=== PATIENT | male | born 1965 | race Caucasian/White ===

== ENCOUNTER → 2022-05-22 | Outpatient (CLI) | payer MEDICARE ==
--- NOTE | 2022-05-22 20:07 | CT ---
EXAMINATION TYPE: CT abdomen wo con DATE OF EXAM: 05/22/2022 COMPARISON: None INDICATION: Right upper quadrant pain DLP: 308.20 mGycm, Automated exposure control for dose reduction was used. CONTRAST: 0 mL of Isovue 300. Study performed without Oral Contrast TECHNIQUE: Axial images were obtained from above the diaphragm to the pubic rami in the axial plane a t 5 mm thick sections. Reconstructed images are reviewed on the computer in the coronal plane. FINDINGS: Limited CT sections are obtained the lung bases. The lung bases are clear. CT ABDOMEN: Liver: Normal Spleen: Normal Pancreas: Normal Adrenal glands: The adrenal glands are normal. Gallbladder: Normal Kidneys: No masses are evident. No hydronephrosis is present. No cysts are present. No renal stone s are evident. Aorta: Vascular calcification is within the aorta. Inferior vena cava: Normal. Bowel: Loops of bowel lateral contrast are unremarkable. Appendix: Normal as visualized. IMPRESSIONS: 1. No suspicious abnormality to account for right upper quadrant pain
== END | disposition home or self-care (01) ==
LOC: RADCTMAIN 10:35
PROVIDERS: ATTEND Family Medicine
DX: R10.11 Right upper quadrant pain (principal); R07.89 Other chest pain; R63.4 Abnormal weight loss
CPT/HCPCS: 74150

== ENCOUNTER → 2022-12-14 | Outpatient (CLI) | payer MEDICARE ==
--- NOTE | 2022-12-14 14:14 | CT ---
EXAMINATION TYPE: CT chest wo con CT DLP: 309.3 mGycm, Automated exposure control for dose reduction was used. DATE OF EXAM: 12/14/2022 12:30 PM COMPARISON: CT abdomen 05/22/2022 CLINICAL INDICATION:Male, 57 years old with history of R06.89, J984, R079; PHH, Chest pain and shortn ess of breath. TECHNIQUE: Multiple axial images were obtained through the chest. Sagittal and coronal reformats were created for review. Contrast used: none. Oral contrast used: none. FINDINGS: LUNGS/ PLEURA: Mild emphysema changes. No evidence of focal consolidation, pneumothorax or pleural ef fusion. Scattered groundglass opacities are seen within the left lower lobe. AIRWAY: Patent and unremarkable. HEART: Size within normal limits. Mild coronary artery atherosclerosis. MEDIASTINUM: No gross evidence of adenopathy. VASCULATURE: No aortic aneurysm. MUSCULOSKELETAL: No acute osseous abnormalities, degeneration changes of the shoulders. Multilevel de generation changes of the spine. Bridging osteophytes along the anterior longitudinal ligament extend ing from the cervical spine to the lumbar spine. The supraspinatus ligament is also calcified at mult iple levels in the midthoracic spine. SOFT TISSUES/LYMPH NODES: Unremarkable. LOWER NECK: No significant findings. UPPER ABDOMEN: Ingested food within the stomach with mild dilation of the stomach. IMPRESSION: 1. Minimal groundglass opacity seen within the left lower lobe new from 05/22/2022, correlate for in fectious/inflammatory process. Consider short-term follow-up in 3 months to ensure resolution. 2. Mild emphysema changes. 3. Findings compatible with diffuse idiopathic skeletal hyperostosis.
== END | disposition home or self-care (01) ==
LOC: RADCTMAIN 12:12
PROVIDERS: ATTEND Family Medicine
DX: J43.9 Emphysema, unspecified (principal); R91.8 Other nonspecific abnormal finding of lung field; J98.4 Other disorders of lung; R06.89 Other abnormalities of breathing
CPT/HCPCS: 71250

== ENCOUNTER → 2023-01-09 | Outpatient (CLI) | payer MEDICARE ==
[~2023-01-09] MED LIST: REGADENOSON 0.4 MG/5 ML SYRINGE IV PRN
--- NOTE | 2023-01-09 13:05 | CA ---
Lexiscan Nuclear Stress Test Report Name: Luis Ingram Exam Date: 01/09/2023 09:26 Exam Location: [facility] Stress Ht (in): 67 Wt (lb): 153 BSA: 1.80 Ordering Phys: Christelle El MD Referring Phys: DILLAN, Technologist: Deandre Peace Age: 57 Gender: M : 1965 Procedure CPT: Indications: R079 CHEST PAIN ICD-10 Codes: Patient History: Medications: METOPROLOL Meds past 24 hrs: Pretest Chest Pain: STRESS TEST Lexiscan Protocol Exercise Duration (min:sec): 02:[address] Depressions (mm): Angina Score: Hernandez Score: Resting HR (bpm): 61 Peak HR (bpm): 97 Resting BP (mmHg): 119 / 76 Peak BP (mmHg): 117 / 71 MPHR: 164 Target HR: 139 % MPHR: 59 METS: 1.0 Total Dose: Peak Dose: Atropine: Double Product: 11978 BP Response: Stress Termination: PROTOCOL COMPLETE Stress Symptoms: NO SYMPTOMS Stress Summary: ECG ANALYSIS Resting ECG: Stress ECG: CONCLUSIONS At baseline EKG showed normal sinus rhythm, normal axis, no significant ST or T wave abnormalities. Patient recieved IV infusion of Lexiscan 0.4mg and at peak infusion EKG showed no significant change from baseline. Conclusions: 1. Normal EKG response to Lexiscan infusion 2. Nuclear imaging to be reported separately. Dr. Ash Blue DO (Electronically Signed) Final Date: 09 January 2023 13:04
--- NOTE | 2023-01-09 15:35 | NM ---
EXAMINATION TYPE: NM stress lexiscan cardiolite DATE OF EXAM: 01/09/2023 COMPARISON: NONE CLINICAL INDICATION: Male, 57 years old with history of R079 CHEST PAIN; TECHNIQUE: After the intravenous administration of 9.83 mCi Tc 99m Sestamibi - Cardiolite resting SP ECT images acquired 55 minutes post injection. The patient received 0.4mg Lexiscan, 25.5 mCi Tc 99m Sestamibi - Stress images obtained [address] injection FINDINGS: Review of stress and rest SPECT images demonstrates large area of fixed perfusion defect along the in ferior wall extending to the apex. No discrete reversibility is seen. Gated analysis shows normal wal l motion with an estimated left ventricular ejection fraction of 67 %. TID calculated at 1.02. IMPRESSION: Large fixed perfusion defect involving the entire inferior wall, suspected to represent prominent gutierrez phragmatic attenuation artifact. Correlate for any history of prior infarct. No discrete reversibilit y is seen.
== END | disposition home or self-care (01) ==
LOC: RADNMMAIN 07:59
PROVIDERS: ATTEND Family Medicine
DX: R07.9 Chest pain, unspecified (principal)
CPT/HCPCS: 93017; 78452; A9500; J2785

== ENCOUNTER 2023-02-21 16:35 | Observation (INO) | payer MEDICARE ==
--- NOTE | 2023-02-21 16:50 | ED ---
General Adult HPI - General Source: patient, family Mode of arrival: ambulatory Limitations: no limitations <Rachel Rocha - Last Filed: 02/21/23 16:47> <Tony Reich - Last Filed: 02/21/23 18:34> - General Chief complaint: Chest Pain Stated complaint: Chest Pain,Sob,Back Pain Time Seen by Provider: 02/21/23 16:47 - History of Present Illness Initial comments: 57-year-old male presents emergency department chief complaint of left-sided chest pain that radiates to the back. Patient reports that this started around noon today. He reports that the pain comes and goes with no associated aggravating or alleviating factors. Reports the pain lasts for a few minutes at a time. He admits to associated shortness of breath and nausea when the pain is present. Patient admits to marijuana use. Patient is a former smoker. (Rachel Rocha) This is a 57-year-old male presents emergency department complaining of chest pain in the center of her chest per patient states it started about 2 days ago is been intermittent ever since. Patient states today the pain is much worse and has been and is rated a little bit to his back. Patient states he also been feeling short of breath. Patient states this is been an ongoing issue over the last few months but thinks appear to be progressing. Patient states he had a echocardiogram back in December and they told him that it was abnormal. Patient states currently is not having any chest pain. Patient states the symptoms have continued to progress and today they were the worst that they have been so he decided come to the hospital. Patient denies any recent fever chills or cough per patient denies any abdominal pain patient denies any lightheadedness or dizziness patient denies any near syncopal episode. (Tony Reich) - Related Data Allergies Allergy/AdvReac Type Severity Reaction Status Date / Time erythromycin base Allergy Rash/Hives/Over Unverified 02/21/23 17:37 heats Penicillins Allergy Swelling Unverified 02/21/23 17:37 all over Review of Systems ROS Other: All systems not noted in ROS Statement are negative. <Rachel Rocha - Last Filed: 02/21/23 16:47> ROS Other: All systems not noted in ROS Statement are negative. <Tony Reich - Last Filed: 02/21/23 18:34> ROS Statement: Those systems with pertinent positive or pertinent negative responses have been documented in the HPI. Past Medical History Past Medical History: Chest Pain / Angina, Hypertension Past Surgical History: Joint Replacement, Orthopedic Surgery Past Alcohol Use History: None Reported Past Drug Use History: Marijuana <Rachel Rocha - Last Filed: 02/21/23 16:47> General Exam Limitations: no limitations <Rachel Rocha - Last Filed: 02/21/23 16:47> <Tony Reich - Last Filed: 02/21/23 18:34> - General Exam Comments Initial Comments: Visual Physical Exam Vital signs reviewed General: Well-appearing, nontoxic, no acute distress. Head: Normocephalic, atraumatic Eyes: PERRLA, EOMI ENT: Airway patent Chest: Nonlabored breathing Skin: No visual rash, normal skin tone Neuro: Alert and oriented 3 Musculoskeletal: No gross abnormalities (Rachel Rocha) GENERAL: Patient is well-developed and well-nourished. Patient is nontoxic and well-hy drated and is in mild distress. ENT: Neck is soft and supple. No significant lymphadenopathy is noted. Oropharynx is clear. Moist mucous membranes. Neck has full range of motion without eliciting any pain. EYES: The sclera were anicteric and conjunctiva were pink and moist. Extraocular move ments were intact and pupils were equal round and reactive to light. Eyelids were unremarkable. PULMONARY: Unlabored respirations. Good breath sounds bilaterally. No audible rales rhonchi or wheezing was noted. CARDIOVASCULAR: There is a regular rate and rhythm without any murmurs gallops or rubs. ABDOMEN: Soft and nontender with normal bowel sounds. SKIN: Skin is clear with no lesions or rashes and otherwise unremarkable. NEUROLOGIC: Patient is alert and oriented x3. Cranial nerves II through XII are grossly intact. Motor and sensory are also intact. Normal speech, volume and content. Symmetrical smile. MUSCULOSKELETAL: Normal extremities with adequate strength and full range of motion. LYMPHATICS: No significant lymphadenopathy is noted PSYCHIATRIC: Normal psychiatric evaluation. (Tony Reich) Course Vital Signs 02/21/23 02/21/23 02/21/23 16:42 17:17 17:18 Temperature 98.4 F Pulse Rate 99 93 Pulse Rate [ 87 Practice Nurse ] Respiratory 20 18 Rate Blood Pressure 136/78 160/84 O2 Sat by Pulse 99 99 Oximetry 02/21/23 18:15 Temperature 98.8 F Pulse Rate 78 Pulse Rate [ Practice Nurse ] Respiratory 18 Rate Blood Pressure 155/86 O2 Sat by Pulse 99 Oximetry Medical Decision Making <Rachel Rocha - Last Filed: 02/21/23 16:47> - Lab Data Result diagrams: 02/21/23 16:54 02/21/23 16:54 <Tony Reich - Last Filed: 02/21/23 18:34> - Medical Decision Making I performed a quick note portion of this chart. Electronically signed, Rachel Rocha PA-C (Rachel Rocha) EKG was interpreted by myself EKG shows sinus tachycardia at 108 bpm MA interval is on a 56 QRS is 90 QT interval 360 QTC is 423 per patient's EKG shows no ST segment elevation or depression. Was pt. sent in by a medical professional or institution ([facility], [facility], urgent care, hospital, or fci...) When possible be specific @ -No Did you speak to anyone other than the patient for history (EMS, parent, family, police, friend...)? What history was obtained from this source @ -No Did you review nursing and triage notes (agree or disagree)? Why? @ -I reviewed and agree with nursing and triage notes Were old charts reviewed (outside hosp., previous admission, EMS record, old EKG, old radiological studies, urgent care reports/EKG's, fci records)? Report findings @ -I reviewed prior lab work and prior reports on this patient Differential Diagnosis (chest pain, altered mental status, abdominal pain women, abdominal pain men, vaginal bleeding, weakness, fever, dyspnea, syncope, heada justin, dizziness, GI bleed, back pain, seizure, CVA, palpatations, mental health, musculoskeletal)? @ -Differential Chest Pain: Stable Angina, Unstable Angina, STEMI, NSTEMI Aortic Dissection, Pneumothorax, Musculoskeletal, Esophageal Spasm GERD, Cholecystitis, Pancreatitis, Zoster, this is not meant to be an all-inclusive list. EKG interpreted by me (3pts min.). @ -As above X-rays interpreted by me (1pt min.). @ -No acute abnormality CT interpreted by me (1pt min.). @ -None done U/S interpreted by me (1pt. min.). @ -None done What testing was considered but not performed or refused? (CT, X-rays, U/S, labs)? Why? @ -None What meds were considered but not given or refused? Why? @ -None Did you discuss the management of the patient with other professionals (professionals i.e. Dr., PA, [facility], lab, RT, psych nurse, hospice social worker, manager inventory control, teacher, vessel traffic officer, block and case maker)? Give summary @ -I spoke with Dr. Llamas he agreed to admit the patient Was smoking cessation discussed for >3mins.? @ -No Was critical care preformed (if so, how long)? @ -No Were there social determinants of health that impacted care today? How? (Homelessness, low income, unemployed, alcoholism, drug addiction, tra nsportation, low edu. Level, literacy, decrease access to med. care, long-term, rehab)? @ -No Was there de-escalation of care discussed even if they declined (Discuss DNR or withdrawal of care, Hospice)? DNR status @ -No What co-morbidities impacted this encounter? (DM, HTN, Smoking, COPD, CAD, Cancer, CVA, ARF, Chemo, Hep., AIDS, mental health diagnosis, sleep apnea, morbid obesity)? @ -None Was patient admitted / discharged? Hospital course, mention meds given and route, prescriptions, significant lab abnormalities, going to OR and other pertinent info. @ -The chest pain was relieved in the emergency department. I spoke with Dr. Llamas he agreed to admit the patient considering the increasing frequency and intensity of the chest pain. I will admit the patient write admitting orders and consult cardiology Undiagnosed new problem with uncertain prognosis? @ -No Drug Therapy requiring intensive monitoring for toxicity (Heparin, Nitro, Insulin, Cardizem)? @ -No Were any procedures done? @ -No Diagnosis/symptom? @ -Chest pain Acute, or Chronic, or Acute on Chronic? @ -Acute Uncomplicated (without systemic symptoms) or Complicated (systemic symptoms)? @ -Complicated Side effects of treatment? @ -No Exacerbation, Progression, or Severe Exacerbation? @ -No Poses a threat to life or bodily function? How? (Chest pain, USA, ID, pneumonia, PE, COPD, DKA, ARF, appy, cholecystitis, CVA, Diverticulitis, Homicidal, Suicidal, threat to staff... and all critical care pts) @ -No (Tony Reich) - Lab Data Lab Results 02/21/23 02/21/23 02/21/23 Range/Units 16:54 16:54 16:54 WBC 4.2 (3.8-10.6) k/uL RBC 4.15 L (4.30-5.90) m/uL Hgb 14.6 (13.0-17.5) gm/dL Hct 41.6 (39.0-53.0) % MCV 100.3 H (80.0-100.0) fL MCH 35.3 H (25.0-35.0) pg MCHC 35.2 (31.0-37.0) g/dL RDW 12.7 (11.5-15.5) % Plt Count 137 L (150-450) k/uL MPV 7.8 Neutrophils % 64 % Lymphocytes % 25 % Monocytes % 7 % Eosinophils % 3 % Basophils % 1 % Neutrophils # 2.7 (1.3-7.7) k/uL Lymphocytes # 1.1 (1.0-4.8) k/uL Monocytes # 0.3 (0-1.0) k/uL Eosinophils # 0.1 (0-0.7) k/uL Basophils # 0.0 (0-0.2) k/uL PT 10.8 (9.0-12.0) sec INR 1.0 (<1.2) APTT 23.3 (22.0-30.0) sec Sodium 138 (137-145) mmol/L Potassium 3.6 (3.5-5.1) mmol/L Chloride 101 (98-107) mmol/L Carbon Dioxide 28 (22-30) mmol/L Anion Gap 9 mmol/L BUN 12 (9-20) mg/dL Creatinine 0.54 L (0.66-1.25) mg/dL Est GFR (CKD-EPI)AfAm >90 (>60 ml/min/1.73 sqM) Est GFR (CKD-EPI)NonAf >90 (>60 ml/min/1.73 sqM) Glucose 254 H (74-99) mg/dL Calcium 9.1 (8.4-10.2) mg/dL Magnesium 1.9 (1.6-2.3) mg/dL Total Bilirubin 0.9 (0.2-1.3) mg/dL AST 22 (17-59) U/L ALT 20 (4-49) U/L Alkaline Phosphatase 108 (38-126) U/L Troponin I (0.000-0.034) ng/mL Total Protein 6.7 (6.3-8.2) g/dL Albumin 4.2 (3.5-5.0) g/dL 02/21/23 Range/Units 16:54 WBC (3.8-10.6) k/uL RBC (4.30-5.90) m/uL Hgb (13.0-17.5) gm/dL Hct (39.0-53.0) % MCV (80.0-100.0) fL MCH (25.0-35.0) pg MCHC (31.0-37.0) g/dL RDW (11.5-15.5) % Plt Count (150-450) k/uL MPV Neutrophils % % Lymphocytes % % Monocytes % % Eosinophils % % Basophils % % Neutrophils # (1.3-7.7) k/uL Lymphocytes # (1.0-4.8) k/uL Monocytes # (0-1.0) k/uL Eosinophils # (0-0.7) k/uL Basophils # (0-0.2) k/uL PT (9.0-12.0) sec INR (<1.2) APTT (22.0-30.0) sec Sodium (137-145) mmol/L Potassium (3.5-5.1) mmol/L Chloride (98-107) mmol/L Carbon Dioxide (22-30) mmol/L Anion Gap mmol/L BUN (9-20) mg/dL Creatinine (0.66-1.25) mg/dL Est GFR (CKD-EPI)AfAm (>60 ml/min/1.73 sqM) Est GFR (CKD-EPI)NonAf (>60 ml/min/1.73 sqM) Glucose (74-99) mg/dL Calcium (8.4-10.2) mg/dL Magnesium (1.6-2.3) mg/dL Total Bilirubin (0.2-1.3) mg/dL AST (17-59) U/L ALT (4-49) U/L Alkaline Phosphatase (38-126) U/L Troponin I <0.012 (0.000-0.034) ng/mL Total Protein (6.3-8.2) g/dL Albumin (3.5-5.0) g/dL Disposition <Rachel Rocha - Last Filed: 02/21/23 16:47> Time of Disposition: 18:34 <Tony Reich - Last Filed: 02/21/23 18:34> Clinical Impression: Chest pain Disposition: ADMITTED IP TO THIS HOSP Referrals: Christelle El MD [Primary Care Provider] - 1-2 days
[2023-02-21 17:19] LABS: Basophils % (A) 1 %; Eosinophils # (A) 0.1 k/uL (0-0.7); Eosinophils % (A) 3 %; HCT 41.6 % (39.0-53.0); HGB 14.6 gm/dL (13.0-17.5); Lymphocytes # (A) 1.1 k/uL (1.0-4.8); Lymphocytes % (A) 25 %; MCH 35.3 pg (25.0-35.0); MCHC 35.2 g/dL (31.0-37.0); MCV 100.3 fL (80.0-100.0); Mean Platelet Volume 7.8; Monocytes # (A) 0.3 k/uL (0-1.0); Monocytes % (A) 7 %; Neutrophils # (A) 2.7 k/uL (1.3-7.7); Neutrophils % (A) 64 %; Platelet Count 137 k/uL (150-450); RBC 4.15 m/uL (4.30-5.90); RDW 12.7 % (11.5-15.5); WBC 4.2 k/uL (3.8-10.6)
[2023-02-21 17:30] LABS: ALT 20 U/L (4-49); AST 22 U/L (17-59); African American GFR (CKD) >90 (>60 ml/min/1.73 sqM); Albumin 4.2 g/dL (3.5-5.0); Alkaline Phosphatase 108 U/L (38-126); Anion Gap 9 mmol/L; Blood Urea Nitrogen 12 mg/dL (9-20); Calcium 9.1 mg/dL (8.4-10.2); Carbon Dioxide 28 mmol/L (22-30); Chloride 101 mmol/L (98-107); Glucose 254 mg/dL (74-99); Magnesium 1.9 mg/dL (1.6-2.3); Non-African American GFR(CKD) >90 (>60 ml/min/1.73 sqM); Partial Thromboplastin Time 23.3 sec (22.0-30.0); Potassium 3.6 mmol/L (3.5-5.1); Prothrombin Time 10.8 sec (9.0-12.0); Sodium 138 mmol/L (137-145); Total Bilirubin 0.9 mg/dL (0.2-1.3); Total Protein 6.7 g/dL (6.3-8.2)
--- NOTE | 2023-02-21 17:47 | XR ---
EXAMINATION TYPE: XR chest 2V DATE OF EXAM: 02/21/2023 5:15 PM COMPARISON: None TECHNIQUE: XR chest 2V Frontal and lateral views of the chest. CLINICAL INDICATION:Male, 57 years old with history of Chest Pain; FINDINGS: Lungs/Pleura: There is no evidence of pleural effusion, focal consolidation, or pneumothorax. Pulmonary vascularity: Unremarkable. Heart/mediastinum: Cardiomediastinal silhouette is unremarkable. Musculoskeletal: No acute osseous pathology. IMPRESSION: No acute cardiopulmonary disease/process.
[2023-02-21] MEDS ORDERED: NITROGLYCERIN SL TABS 0.4 MG TAB SUBLINGUAL PRN (18:34)
[2023-02-21] MEDS ORDERED: ASPIRIN 81 MG PO STA (18:34)
[2023-02-22] MEDS: NITROGLYCERIN OINT 1 INCH/GM PACKET TOPICAL SCH ×2 (01:24→05:33)
[2023-02-22 02:45] VITALS: TEMP 98.4
[2023-02-22] MEDS ORDERED: ATORVASTATIN 80 MG TAB PO STA (08:07)
[2023-02-22] MEDS ORDERED: NITROGLYCERIN SL TABS 0.4 MG TAB SUBLINGUAL PRN (08:07)
[2023-02-22] MEDS ORDERED: ALPRAZolam 0.25 MG TAB PO PRN (08:07)
[2023-02-22] MEDS ORDERED: ASPIRIN 325 MG TAB PO STA (08:07)
[2023-02-22] MEDS ORDERED: ALPRAZolam 0.5 MG TAB PO PRN (08:07)
[2023-02-22] MEDS ORDERED: SODIUM CHLORIDE 0.9% 1,000 ML in EMPTY BAG 1 BAG IV SCH (08:15)
[2023-02-22 08:55] LABS: Glucose,Whole Blood 216 mg/dL (70-110)
[2023-02-22 08:55] LABS: Chol/HDL Ratio 2.89 Ratio; LDL Cholesterol,Calculated 92.6 mg/dL (0.0-131.0)
[2023-02-22] MEDS ORDERED: ASPIRIN 325 MG TAB PO SCH (09:00)
[2023-02-22] MEDS ORDERED: METOPROLOL SUCCINATE (ER) 25 MG TAB.ER.24H PO SCH (09:00)
[2023-02-22] MEDS ORDERED: ASPIRIN 81 MG PO SCH (09:00)
[2023-02-22] MEDS ORDERED: DEXTROSE 50% SYRINGE 50 ML IVP PRN ×2 (09:14)
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
[2023-02-22] MEDS ORDERED: VERAPAMIL 2.5 MG/ML 2 ML AMP ONE (11:09)
[2023-02-22] MEDS ORDERED: fentaNYL (PF) 50 MCG/ML 2 ML AMP ONE (11:30)
[2023-02-22] MEDS ORDERED: fentaNYL (PF) 50 MCG/ML 2 ML AMP IVP ONE (11:49)
[2023-02-22] MEDS ORDERED: IV FLUID CONTINUATION 900 ML IV ONE (11:50)
[2023-02-22] MEDS ORDERED: LIDOCAINE 2% INJ 20 MG/ML SQ ONE ×2 (11:52→11:53)
[2023-02-22] MEDS ORDERED: MIDAZOLAM 2 MG/2 ML VIAL IVP ONE (11:53)
[2023-02-22] MEDS ORDERED: VERAPAMIL SYRINGE (5 MG/10 ML) INTRAARTER ONE (11:55)
[2023-02-22] MEDS ORDERED: HEPARIN SODIUM 1,000 UN/ML (10ML VL) IV ONE (11:57)
[2023-02-22] MEDS ORDERED: IOPAMIDOL-370 100ML BTL INJ ONE (12:07)
[2023-02-22] MEDS ORDERED: RX INFO: IV CONTRAST WAS GIVEN 1 EACH MISC MISCELLANE PRN (12:12)
[2023-02-22] MEDS ORDERED: SODIUM CHLORIDE 0.9% 1,000 ML IV SCH (12:15)
--- NOTE | 2023-02-22 12:18 | P.CARDCATH ---
Date of Procedure: 02/22/23 Description of Procedure: Cardiac Catheterization: The patient is a 57-year-old male with history of hypertension, elevated blood sugar who presented with symptoms of chest discomfort. He had a stress test recently that showed an inferior fixed defect. But because of the persistent symptoms patient was admitted to the hospital. Recommendations were made regarding cardiac catheterization, the risks and the complications were discussed with the patient who is in full understanding and agreement. Procedure Description: Patient was brought to cath laboratory technician in fasting semi-sedated state after receiving Fentanyl and Benadryl achieiving moderate conscious sedated state. Using Xylocaine Anesthesia and Seldinger technique, a 6-[place] sheath was introduced in the right radial artery . Subsequently, selective coronary angiography was performed using a 5-[place] 3.5 bend Yue catheter. Multiple views of the coronary artery including hemiaxial views were obtained. The right Yue catheter was used to cross the aortic valve and LVEDP was calculated. Following that, catheter and sheath were removed. Hemostasis was obtained with deployment of TR band . There was no immediate complication. Patient was returned to room in stable condition. Of note, the patient received a total of 4000 units of intravenous heparin as well as intra-arterial verapamil. Findings: Left main: This is a large-size vessel, trifurcating into LAD, ramus intermedius and left circumflex, left main has no obstructive disease LAD: This is a large-size vessel, reaching to the apex, giving rise to a diagonal branch proximally, the LAD has no obstructive disease Left circumflex: This is a small nondominant vessel that has no obstructive disease RCA: This is a large-size vessel, bifurcating into PDA and PLV, the RCA has no obstructive disease Ramus intermedius: this is a moderately sized vessel that has no evidence of o bstructive disease Left Ventriculogram: Not performed Hemodynamics: There was no gradient across the aortic valve, LVEDP was 8-10 mmHg Conclusion: 1. Normal coronary arteries 2. Right dominance 3. Normal LVEDP Recommendations: I discussed the findings with the patient, I see no evidence of obstructive disease to explain his chest discomfort, he will continue aggressive coronary risks modification. The findings and the recommendations were discussed with the patient and the family and they were in full understanding and agreement. Duration of sedation is 10 minutes.
[2023-02-22] MEDS ORDERED: INSULIN ASPART (NovoLOG) 100 UNIT/ML VIAL SQ SCH (12:30)
[2023-02-22 13:47] VITALS: BMI 24.3
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
[2023-02-22 14:49] VITALS: RESP 18
[2023-02-22 16:15] VITALS: BP 157/77; PULSE 65
--- NOTE | 2023-02-22 18:07 | CA ---
Transthoracic Echo Report Name: Luis Ingram Age: 57 Gender: M : 1965 Exam Date: 02/22/2023 13:41 Exam Location: [facility] Ht (in): 67 Wt (lb): 155 Ordering Physician: Queta Kohli Attending/Referring Phys: [id number], Seun Power [employer]pper Yoni Dial Procedure CPT: Indications: LV function, CP Cardiac Hx: Technical Quality: Fair Contrast 1: Total Dose (mL): Contrast 2: Total Dose (mL): MEASUREMENTS (Male / Female) Normal Values 2D ECHO LV Diastolic Diameter PLAX 4.6 cm 4.2 - 5.9 / 3.9 - 5.3 cm LV Systolic Diameter PLAX 3.0 cm IVS Diastolic Thickness 0.9 cm 0.6 - 1.0 / 0.6 - 0.9 cm LVPW Diastolic Thickness 1.1 cm 0.6 - 1.0 / 0.6 - 0.9 cm LV Relative Wall Thickness 0.5 RV Internal Dim ED PLAX 2.4 cm LVOT Diameter 2.0 cm Aortic Root Diameter 2.8 cm LA Systolic Diameter LX 1.8 cm 3.0 - 4.0 / 2.7 - 3.8 cm LV Diastolic Volume MOD BP 59.3 cm??? 67 - 155 / 56 - 104 cm??? LV Systolic Volume MOD BP 27.2 cm??? 22 - 58 / 19 - 49 cm??? LV Ejection Fraction MOD BP 54.1 % >= 55 % LV Cardiac Index MOD BP 1190.5 cm???/min???m??? LV Diastolic Volume MOD 4C 61.3 cm??? LV Systolic Volume MOD 4C 28.4 cm??? LV Ejection Fraction MOD 4C 53.7 % LV Cardiac Index MOD 4C 1224.3 cm???/min???m??? LV Diastolic Length 4C 7.2 cm LV Systolic Length 4C 5.9 cm LV Diastolic Volume MOD 2C 52.7 cm??? LV Systolic Volume MOD 2C 23.1 cm??? LV Ejection Fraction MOD 2C 56.2 % LV Cardiac Index MOD 2C 1099.8 cm???/min???m??? LV Diastolic Length 2C 6.6 cm LV Systolic Length 2C 5.2 cm LA Volume 43.9 cm??? 18 - 58 / 22 - 52 cm??? DOPPLER AV Peak Velocity 145.5 cm/s AV Peak Gradient 8.5 mmHg LVOT Peak Velocity 86.4 cm/s LVOT Peak Gradient 3.0 mmHg AV Area Cont Eq pk 1.8 cm??? MV Peak Velocity 90.7 cm/s MV Peak Gradient 3.3 mmHg MV Mean Velocity 47.0 cm/s MV Mean Gradient 1.1 mmHg MV Velocity Time Integral 28.6 cm MR Peak Velocity 111.9 cm/s MR Peak Gradient 5.0 mmHg Mitral E Point Velocity 84.2 cm/s Mitral A Point Velocity 57.3 cm/s Mitral E to A Ratio 1.5 MV Deceleration Time 277.2 ms MV E' Velocity 10.5 cm/s Mitral E to MV E' Ratio 8.0 PV Peak Velocity 90.8 cm/s PV Peak Gradient 3.3 mmHg FINDINGS Left Ventricle Normal LV size and wall thickness. Left ventricular ejection fraction is estimated at 55-60 %.normal left ventricular wall motion. Right Ventricle Normal right ventricular size. Right Atrium Normal right atrial size. Left Atrium Normal left atrial size. Mitral Valve Structurally normal mitral valve. Trace MR. Aortic Valve Trileaflet aortic valve. No aortic valve stenosis or regurgitation. Tricuspid Valve Structurally normal tricuspid valve. No tricuspid regurgitation. Pulmonic Valve Pulmonic valve not well visualized. No pulmonic regurgitation. Pericardium Normal pericardium. Aorta Normal size aortic root. CONCLUSIONS 1. Normal left ventricle size and systolic function 2. Trace mitral regurgitation Previewed by: Dr. Herlinda Santos MD (Electronically Signed) Final Date: 22 February 2023 18:06
[2023-02-22] MEDS ORDERED: ATORVASTATIN 40 MG TAB PO SCH (21:00)
[2023-02-23] MEDS ORDERED: HEPARIN SODIUM,PORCINE (1 ML) 2,500 UNIT in SODIUM CHLORIDE 0.9% 250 ML IRRIGATION PRN (07:00)
[2023-02-23] MEDS ORDERED: HEPARIN SODIUM,PORCINE 10,000 UNIT in SODIUM CHLORIDE 0.9% 1,000 ML IRRIGATION PRN (07:00)
== END 2023-02-22 16:09 | disposition home or self-care (01) ==
LOC: EC 16:35 → 6NMEDSUR 18:35
PROVIDERS: ADMIT Family Medicine; ATTEND Family Medicine
DX: I20.0 Unstable angina (principal); R94.39 Abnormal result of other cardiovascular function study; I10 Essential (primary) hypertension; R73.9 Hyperglycemia, unspecified; Z87.891 Personal history of nicotine dependence; Z79.899 Other long term (current) drug therapy; Z88.1 Allergy status to other antibiotic agents; Z88.0 Allergy status to penicillin
CPT/HCPCS: 99285; 36415; 94760; 93005; 93306; 93458; 80061; 80053; 83735; 84484; 85025; 85610; 85730; 83036; 71046; G0378 ×2; C1769 ×2; C1894; J2001; J2250; J3010; J1644; Q9967